=== PATIENT | male | born 2000 | race Two or more races ===

== ENCOUNTER 2020-12-28 11:39 | Emergency (ER) | payer SELFPAY ==
[~2020-12-28] VITALS: Ht 167.6 cm; Wt 56.7 kg
[2020-12-28 13:37] VITALS: BP 124/84
[2020-12-28] MEDS ORDERED: TETANUS-DIPTH-ACEL PERTUSSIS 0.5ML SYR Tdap IM ONE (17:45)
[2020-12-28] MEDS ORDERED: cefTRIAXone SOD 1,000 MG VL IM ONE (17:45)
== END 2020-12-28 18:46 | disposition home or self-care (01) ==
LOC: ER 11:39
DX: S61.012A Laceration without foreign body of left thumb without damage to nail, initial encounter (principal); W01.0XXA Fall on same level from slipping, tripping and stumbling without subsequent striking against object, initial encounter; Y93.89 Activity, other specified; Y92.89 Other specified places as the place of occurrence of the external cause; Y99.8 Other external cause status
CPT/HCPCS: 12002; 73140; 90471; 90715; 96372; 99284; J0696